=== PATIENT | female | born 1965 | race Caucasian/White ===

== ENCOUNTER → 2016-11-29 | Outpatient (CLI) | payer OTHER | LOC: FIMAGING 12:58 | PROVIDERS: ATTEND Obstetrics & Gynecology | DX: Z12.39 Encounter for other screening for malignant neoplasm of breast (principal); N63 Unspecified lump in breast | CPT/HCPCS: G0206 ==

== ENCOUNTER → 2017-07-12 | Outpatient (CLI) | payer OTHER | LOC: FIMAGING 09:11 | PROVIDERS: ATTEND Internal Medicine Hematology & Oncology | DX: Z12.31 Encounter for screening mammogram for malignant neoplasm of breast (principal); Z80.3 Family history of malignant neoplasm of breast ==

== ENCOUNTER 2017-10-29 16:33 | Emergency (ER) | payer OTHER ==
[2017-10-29 16:56] VITALS: BP 104/61
--- NOTE | 2017-10-29 17:02 | EDPHY ---
H & P Time Seen by Provider: 10/29/17 17:00 HPI/ROS: CHIEF COMPLAINT: Right 2nd toe injury HISTORY OF PRESENT ILLNESS: 52-year-old female with out-of-date tetanus arrives via private vehicle after she dropped a 5 gallon pot full of water onto her right 2nd and 3rd toe. Laceration noted to the 2nd toe distal phalanx with possible partial amputation . tender palpation 3rd toe. Remainder of foot is nontender with no trauma. She was wearing socks when this happened. She is able to bear weight albeit with significant pain. PHYSICAL EXAM (Prior to examination, patient consented to physical exam, hands were washed and my usual and customary physical exam procedures followed) 1) GENERAL: Well-developed, well-nourished, alert and oriented. Appears uncomfortable, hyperventilating. 2) HEAD: Normocephalic 3) HEENT: sclera anicteric 4) LUNGS: Breathing comfortably. 5) SKIN: 6) MUSCULOSKELETAL: Right 2nd toe at the D IP joint laceration and partial amputation of approximately 40% of the tissue on the dorsal aspect. Osseous fragments visualized. The nail is present but avulsed. Ecchymosis to the right distal 3rd toe. With intact skin no puncture wound 7) NEUROLOGIC: Decreased sensation distally Smoking Status: Never smoked Constitutional: Initial Vital Signs Temperature (C) 36.3 C 10/29/17 16:54 Heart Rate 73 10/29/17 16:54 Respiratory Rate 24 H 10/29/17 16:54 Blood Pressure 104/61 10/29/17 16:54 O2 Sat (%) 100 10/29/17 16:54 O2 Delivery Mode Room Air Allergies/Adverse Reactions: amoxicillin trihydrate [From Augmentin] Allergy (Verified 10/29/17 16:53) Other-Enter Comments potassium clavula *RETIRED-02/12/12 [From Augmentin] Allergy (Verified 10/29/17 16:53) DUST Allergy (Intermediate, Uncoded 10/29/17 16:53) ASTHMA DUST MITES Allergy (Intermediate, Uncoded 10/29/17 16:53) ASTHMA POLLENS Allergy (Intermediate, Uncoded 10/29/17 16:53) ASTHMA Home Medications: Medication Instructions Recorded SYNTHROID 0 06/09/09 Albuterol [Albuterol deyvial] 2.5 mg IH Q2-4PRN PRN #30 deyvial 08/19/10 Ipratropium [Atrovent Hfa] 1 puffs IH TID #1 mdi 08/19/10 Cephalexin [Keflex] 500 mg PO TID 7 Days cap 10/29/17 Hydrocodone/APAP 5/325 [Daisy 1 tab PO Q6 PRN #10 tab 10/29/17 5/325 (RX)] MDM/Departure - [facility] Imaging Results: Imaging Impressions Toe X-Ray 10/29/17 17:11 Impression: Comminuted right second distal toe tuft fracture. Images reviewed myself Procedures: Procedure: Laceration repair. I explained the indications, risks and benefits for both laceration repair and anesthetic administration. Verbal consent was obtained from the patient. The laceration on the right 2nd toe was anesthetized using 0.5% bupivicaine without epinephrine digital nerve block. After anesthetic administered the patient was observed for a period of time and had no apparent adverse effects. The wound was cleaned, prepped, draped in normal sterile fashion and explored to its base. No foreign body seen, no foreign bodies palpated. There were no deep structures involved. She has complete nail avulsion with underlying nail bed laceration. Her nail was temporarily removed, the nail bed laceration repaired with 4 simple interrupted 5 0 Vicryl sutures. The adjacent skin closed a total of 5 simple interrupted 5 O Prolene sutures. The nail was then replaced. The area is then dressed with antibiotic ointment and Adaptic. The wound repair was complex. The procedure was performed by myself. Patient has been informed that scarring will occur, although efforts have been made to minimize this. Procedure: Splint A postop shoe splint was applied by ER home appliance technician. After application of the splint I returned and re-examined the patient. The splint was adequately immobilizing the joint and distal to the splint the patient's circulation and sensation were intact. Patient shows no signs of compartment syndrome. Was given orthopedic precautions. Procedure: Crutches indications for crutch use discussed with patient. Patient fitted for crutches by ER staff. Observed ambulating with crutches. I think the patient has the capacity to safely use crutches. Usual and customary crutch walking precautions provided Medications Given: Discontinued Medications Cephalexin HCl (Keflex) 500 mg PO EDNOW ONE PRN Reason: Protocol Stop: 10/29/17 18:00 Last Admin: 10/29/17 18:22 Dose: 500 mg Diphtheria/Tetanus/Acell Pertussis (Boostrix) 0.5 ml IM .ONCE ONE Stop: 10/29/17 18:00 Last Admin: 10/29/17 18:23 Dose: 0.5 ml ED Course/Re-evaluation: Re-examination with serial exams. Patient has an open tuft fracture of her right 2nd toe with underlying nail bed laceration which has been repaired. She is started on prophylactic antibiotics in the emergency department, she would like to follow up it [facility], will provide her name of on -call orthopedics and Dr. Juan Cai as well. Usual and customary orthopedic and wound precautions and instructions provided. I saw this patient independently based on established practice protocols. Care of patient under supervision of secondary supervising physician Dr Sevilla with whom I discussed case. - Depart Disposition: Home, Routine, Self-Care Clinical Impression: open tuft fracture toe Condition: Good Instructions: Cephalexin (By mouth), Hydrocodone/Acetaminophen (By mouth), Toe Fracture (ED) Additional Instructions: Return to the ER if you develop redness, swelling, discharge, warmth to the wound, red streaks going up your leg, or any other symptoms that concern you. Prescriptions: Cephalexin [Keflex] 500 mg PO TID 7 Days cap Hydrocodone/APAP 5/325 [Daisy 5/325 (RX)] 1 tab PO Q6 PRN #10 tab PRN Reason: Pain, Severe Referrals: Juan Cai MD [Medical Doctor] - 2-3 days, call for appt.
[2017-10-29] MEDS ORDERED: CEPHALEXIN 500 MG CAP PO ONE (17:59)
[2017-10-29] MEDS ORDERED: TDAP ADULT 0.5 ML INJ (BOOSTRIX) IM ONE (17:59)
[2017-10-29] MEDS ORDERED: HYDROCODONE/APAP 5/325 TAB ONE (19:20)
[2017-10-29] MEDS ORDERED: HYDROCODONE/APAP 5/325 TAB PO ONE (19:21)
== END 2017-10-29 19:20 | disposition home or self-care (01) ==
PROC: 0HQRXZZ Repair Toe Nail, External Approach (ICD-10-PCS; principal; 2017-10-29)
DX: S92.531B Displaced fracture of distal phalanx of right lesser toe(s), initial encounter for open fracture (principal); Z23 Encounter for immunization; W20.8XXA Other cause of strike by thrown, projected or falling object, initial encounter
CPT/HCPCS: L4386

== ENCOUNTER → 2018-02-20 | Outpatient (CLI) | payer OTHER | LOC: FIMAGING 11:05 | PROVIDERS: ATTEND Internal Medicine | DX: Z13.820 Encounter for screening for osteoporosis (principal); Z78.0 Asymptomatic menopausal state ==

== ENCOUNTER → 2018-02-20 | Outpatient (CLI) | payer OTHER | LOC: FIMAGING 16:22 | PROVIDERS: ATTEND Internal Medicine | DX: R10.11 Right upper quadrant pain (principal) ==

== ENCOUNTER → 2018-07-15 | Outpatient (CLI) | payer OTHER | LOC: FIMAGING 09:40 | PROVIDERS: ATTEND Obstetrics & Gynecology | DX: Z12.31 Encounter for screening mammogram for malignant neoplasm of breast (principal) ==